=== PATIENT | female | born 1960 | race Caucasian/White ===

== ENCOUNTER 2016-09-27 08:30 | Day surgery (SDC) | payer OTHER ==
[~2016-09-27] VITALS: Ht 170.2 cm; Wt 56.7 kg
[~2016-09-27 08:30] MED LIST: 0.9% Sodium Chloride 1,000 ML IV PRN; LEVO75TA4 PO; PHEN-777 PO; SULF1TAB35 PO; Sodium Chloride LOK Flush 10 mL Syringe IV PRN; fentaNYL-PF 50 mCg/mL 2 mL Inj IVPUSH PRN
[2016-09-27 08:54] VITALS: BP 110/67; PULSE 57; RESP 12; O2SAT 100
[2016-09-27 09:53] VITALS: BP 94/43; PULSE 62; RESP 16; O2SAT 99
[2016-09-27 10:03] VITALS: BP 92/46; PULSE 54; RESP 16; O2SAT 99
[2016-09-27 10:13] VITALS: BP 81/47; PULSE 76; RESP 16; O2SAT 100
--- NOTE | 2016-09-27 10:20 | ENDO ---
[address] [address] ENDOSCOPY PROCEDURE PATIENT: BRITTNI BOUCHER : 1960 MR#: [id number] ADMIT: 09/27/2016 JOB ID: [id number] PRIMARY PROVIDER: Amina Boykin MD PROCEDURE: Colonoscopy. INDICATIONS: A 55-year-old female who reports for colon cancer screening. EQUIPMENT: PCF-H180 AL. SEDATION: Versed 4 mg and 100 mcg fentanyl. COMPLICATIONS: None identified. BOWEL PREPARATION: Fair, adequate exam. PROCEDURE INFO: After the risks and benefits were explained, written and verbal informed consent was obtained. The patient was brought into the endoscopy suite and placed into the left lateral decubitus position. A digital rectal examination revealed grade 4 nonthrombosed nonbleeding hemorrhoids. The scope was introduced into the rectum and advanced under direct visualization to cecum as identified by the appendiceal orifice and ileocecal valve. The scope was slowly withdrawn to carefully examine the mucosa for any defects or lesions. Retroflexed views were avoided in the rectum. Multiple direct views were made through the dentate line for exclusion of pathology. The colon was decompressed. The scope removed from the patient who tolerated the procedure well. FINDINGS: Twisty colon. No significant polyps or mass lesions throughout. ENDOSCOPIC DIAGNOSIS: Grade 4 hemorrhoids. RECOMMENDATIONS: Repeat colonoscopy 10 years' time, sooner should symptoms warrant.
[2016-09-27 10:23] VITALS: BP 96/55; PULSE 58; RESP 16; O2SAT 100
== END 2016-09-27 23:59 | disposition home or self-care (01) ==
LOC: END 08:30
PROVIDERS: ATTEND Internal Medicine Gastroenterology
DX: Z12.11 Encounter for screening for malignant neoplasm of colon (principal); K64.3 Fourth degree hemorrhoids
CPT/HCPCS: G0121; G0500; J7030